=== PATIENT | female | born 1985 | race Caucasian/White ===

== ENCOUNTER 2017-04-22 21:26 | Emergency (ER) | payer OTHER ==
[~2017-04-22] VITALS: Ht 172.7 cm; Wt 108.0 kg
--- NOTE | 2017-04-22 21:41 | PD ---
HPI Chief Complaint Elevated BP and PRESSLEY Travel History International Travel<30 Days: No Contact w/Intl Traveler<30Days: No Known Affected Area: No History of Present Illness HPI Patient presents with c/o elevated BP taken at a pharmacy. Patient also reports a PRESSLEY persistent all day. Denies trying OTC medication for relief. Denies visual changes/RUQ pain. Denies problems this . History Past Medical History Medical History: Denies Significant Hx Past Surgical History Surgical History: No Previous Surgery Family History Family History: Negative Social History Alcohol Use: No Tobacco Use: No Substance Abuse: No Allergies-Medications (Allergen,Severity, Reaction): Coded Allergies: No Known Allergies (Unverified , 04/22/17) Physical Exam AFVSS BP 131/85, 126/87, 123/75 Narrative GENERAL: Well-nourished, well-developed patient. SKIN: Warm and dry. HEAD: Normocephalic and atraumatic. EYES: No scleral icterus. No injection or drainage. ENT: No nasal drainage noted. Mucous membranes pink. Airway patent. NECK: Supple, trachea midline. No JVD. CARDIOVASCULAR: Regular rate and rhythm without murmurs, gallops, or rubs. RESPIRATORY: Breath sounds equal bilaterally. No accessory muscle use. BREASTS: Bilateral exam showed no masses , no retractions, no nipple discharge. ABDOMEN/GI: Abdomen soft, non-tender, bowel sounds present, no rebound, no guarding Gravid to [-] weeks size Fundal Height: [-] GENITOURINARY: External Genitalia: intact and normal in appearance BUS glands: [-] Cervix: [-] Dilatation: [-] Effacement: [-] Station: [-] Presentation: [-] Membranes: [intact or ruptured] Uterine Contractions: [-] FHT's: Category: [1] Baseline: [120s] Reactive: [reactive] Variability: [moderate] Decels: [none] EXTREMITIES: No cyanosis or edema. BACK: Nontender without obvious deformity. No CVA tenderness. NEUROLOGICAL: Awake and alert. Motor and sensory grossly within normal limits. Five out of 5 muscle strength in all muscle groups. Normal speech. Data Data Orders Complete Blood Count With Diff (04/22/17 21:38) Comprehensive Metabolic Panel (04/22/17 21:38) Ldh Serum (04/22/17 21:38) Uric Acid (04/22/17 21:38) Labs Laboratory Tests Test 04/22/17 22:10 White Blood Count 8.7 TH/MM3 Red Blood Count 4.01 MIL/MM3 Hemoglobin 12.1 GM/DL Hematocrit 36.5 % Mean Corpuscular Volume 91.1 FL Mean Corpuscular Hemoglobin 30.2 PG Mean Corpuscular Hemoglobin 33.2 % Concent Red Cell Distribution Width 12.9 % Platelet Count 263 TH/MM3 Mean Platelet Volume 8.6 FL Neutrophils (%) (Auto) 69.0 % Lymphocytes (%) (Auto) 20.8 % Monocytes (%) (Auto) 8.8 % Eosinophils (%) (Auto) 1.0 % Basophils (%) (Auto) 0.4 % Neutrophils # (Auto) 6.0 TH/MM3 Lymphocytes # (Auto) 1.8 TH/MM3 Monocytes # (Auto) 0.8 TH/MM3 Eosinophils # (Auto) 0.1 TH/MM3 Basophils # (Auto) 0.0 TH/MM3 CBC Comment DIFF FINAL Differential Comment Sodium Level 140 MEQ/L Potassium Level 4.0 MEQ/L Chloride Level 107 MEQ/L Carbon Dioxide Level 23.5 MEQ/L Anion Gap 10 MEQ/L Blood Urea Nitrogen 8 MG/DL Creatinine 0.51 MG/DL Estimat Glomerular Filtration 143 ML/MIN Rate Random Glucose 72 MG/DL Uric Acid 4.0 MG/DL Calcium Level 8.5 MG/DL Total Bilirubin 0.3 MG/DL Aspartate Amino Transf 13 U/L (AST/SGOT) Alanine Aminotransferase 12 U/L (ALT/SGPT) Alkaline Phosphatase 75 U/L Lactate Dehydrogenase 146 U/L Total Protein 6.3 GM/DL Albumin 2.5 GM/DL MDM Interpretation(s) IUP at 39w 2d with PRESSLEY. Plan Will obtain serial BPs and pre Eclampsia labs. Will d/c home if labs are WNL and PRESSLEY resolves. Close f/u encouraged. Pre Eclampsia precautions. All questions answered. Diagnosis Diagnosis: Primary Impression: 39 weeks gestation of Additional Impression: Headache in , antepartum Disposition: DISCHARGE HOME Condition: Good Lizy Okeefe MD Apr 22, 2017 21:41
[2017-04-22] MEDS ORDERED: ACETAMINOPHEN 325 MG TAB PO ONE (22:15)
[2017-04-22 22:28] LABS: BASOPHIL % 0.4 % (0.0-2.0); EOSINOPHIL # 0.1 TH/MM3 (0-0.4); HEMATOCRIT 36.5 % (35.0-46.0); HEMO FLAGS DIFF FINAL; LYMPH % 20.8 % (9.0-44.0); LYMPHOCYTE # 1.8 TH/MM3 (1.0-4.8); MEAN CELL VOLUME 91.1 FL (80.0-100.0); MEAN CORPUSCULAR HEMOGLOBIN 30.2 PG (27.0-34.0); MEAN CORPUSCULAR HGB CONC 33.2 % (32.0-36.0); MONO % 8.8 % (0.0-8.0); PLATELET COUNT 263 TH/MM3 (150-450); RED BLOOD COUNT 4.01 MIL/MM3 (4.00-5.30); RED CELL DISTRIBUTION WIDTH 12.9 % (11.6-17.2); WHITE BLOOD COUNT 8.7 TH/MM3 (4.0-11.0)
[2017-04-22 22:48] LABS: ANION GAP 10 MEQ/L (5-15); BICARBONATE 23.5 MEQ/L (21.0-32.0); BLOOD UREA NITROGEN 8 MG/DL (7-18); CHLORIDE 107 MEQ/L (98-107); GLOMERULAR FILTRATION RATE 143 ML/MIN (>89); SODIUM (NA) 140 MEQ/L (136-145)
[2017-04-22 22:52] LABS: ALKALINE PHOSPHATASE 75 U/L (45-117); ALT (GPT) 12 U/L (10-53); AST (GOT) 13 U/L (15-37); LDH SERUM 146 U/L (84-246); TOTAL BILIRUBIN ADULT 0.3 MG/DL (0.2-1.0)
== END 2017-04-22 23:30 | disposition home or self-care (01) ==
LOC: HOBED 21:26
DX: O26.893 Other specified pregnancy related conditions, third trimester (principal); R51 Headache; Z3A.39 39 weeks gestation of pregnancy
CPT/HCPCS: 36415; 59025; 80053; 83615; 84550; 85025

== ENCOUNTER 2017-05-04 05:53 | Inpatient (IN) | payer OTHER ==
[2017-05-04] VITALS (100 sets, daily range): BP systolic 113–143; BP diastolic 32–98; PULSE 49–195; RESP 18–20; TEMP 98.2–98.4
[2017-05-04] MEDS ORDERED: DOCO200C (07:31)
[2017-05-04 07:48] LABS: AUTOMATED NEUTROPHIL # 5.9 TH/MM3 (1.8-7.7); BASOPHIL % 0.4 % (0.0-2.0); EOSINOPHIL # 0.1 TH/MM3 (0-0.4); HEMATOCRIT 36.9 % (35.0-46.0); HEMO FLAGS DIFF FINAL; LYMPH % 23.2 % (9.0-44.0); MEAN CELL VOLUME 90.4 FL (80.0-100.0); MEAN CORPUSCULAR HEMOGLOBIN 30.9 PG (27.0-34.0); MEAN CORPUSCULAR HGB CONC 34.2 % (32.0-36.0); MONO % 8.3 % (0.0-8.0); NEUT % 67.1 % (16.0-70.0); PLATELET COUNT 240 TH/MM3 (150-450); RED BLOOD COUNT 4.08 MIL/MM3 (4.00-5.30); RED CELL DISTRIBUTION WIDTH 13.2 % (11.6-17.2); WHITE BLOOD COUNT 8.8 TH/MM3 (4.0-11.0)
[2017-05-04 07:59] LABS: BACTERIA, URINE OCC /hpf; BLOOD, URINE NEG (NEG); COMMENT (UR) CULT NOT INDICATED; CULTURE IF INDICATED CULT NOT INDICATED; GLUCOSE,URINE NEG (NEG); KETONE, URINE NEG (NEG); MUCUS URINE FEW /lpf (OCC); NITRITE,URINE NEG (NEG); PH, URINE 6.5 (5.0-8.5); SQUAMOUS EPITHELIAL CELL URINE 1 /hpf (0-5); URINE COLOR YELLOW (YELLW/STRAW)
[2017-05-04] MEDS ORDERED: LACTATED RINGER'S 1000 ML BOLUS IV PRN (08:30)
[2017-05-04] MEDS ORDERED: OXYTOCIN 30 UNITS/NS 500ML PREMIX IV SCH (08:30)
[2017-05-04] MEDS ORDERED: LIDOCAINE HCL 1% 50 ML VIAL I-DERMAL PRN (08:30)
[2017-05-04] MEDS ORDERED: PENICILLIN G POT 5,000,000 UNITS/NS 100 ML (Mini-Bag Plus) IV ONE ×2 (08:30)
[2017-05-04] MEDS ORDERED: CITRIC ACID-SODIUM CITRATE LIQ 30 ML UDC PO SCH (08:30)
[2017-05-04] MEDS ORDERED: ONDANSETRON HCL 4 MG/2 ML VIAL IV PRN (08:30)
[2017-05-04] MEDS ORDERED: NS 1000 ML IV PRN (08:30)
[2017-05-04] MEDS ORDERED: OXYTOCIN 30 UNITS 500ML PREMIX IV ONE (08:30)
[2017-05-04] MEDS ORDERED: LIDOCAINE HCL 1% 50 ML VIAL INFIL PRN (08:30)
[2017-05-04] MEDS: LACTATED RINGER'S 1000 ML IV SCH ×2 (08:30→16:30)
[2017-05-04] MEDS ORDERED: MINERAL OIL 10 ML VIAL TOPICAL PRN (08:30)
[2017-05-04] MEDS ORDERED: NS 500 ML BOLUS IV PRN (08:30)
[2017-05-04] MEDS ORDERED: OXYTOCIN 30 UNITS-500ML PREMIX 500 ML IV SCH (08:45)
[2017-05-04] MEDS: PENICILLIN G POT 2,500,000 UNITS/NS 100 ML IV SCH ×6 (13:00→21:00)
[2017-05-04] MEDS ORDERED: ZOLPIDEM TARTRATE 5 MG TAB PO PRN (16:45)
[2017-05-04] MEDS ORDERED: MISOPROSTOL 25 MCG SUPP VAGINAL ONE (20:00)
[2017-05-05] VITALS (135 sets, daily range): BP systolic 106–162; BP diastolic 51–113; PULSE 41–164; RESP 14–20; TEMP 98.1–98.9; O2SAT 99–100
[2017-05-05] MEDS ORDERED: MISOPROSTOL 25 MCG SUPP - repeat dose VAGINAL PRN
[2017-05-05] MEDS: LACTATED RINGER'S 1000 ML IV SCH ×2 (00:30→08:30)
[2017-05-05] MEDS ORDERED: OXYTOCIN 30 UNITS/NS 500ML PREMIX IV SCH (03:30)
[2017-05-05] MEDS: PENICILLIN G POT 2,500,000 UNITS/NS 100 ML IV SCH ×6 (04:24→09:00)
[2017-05-05] MEDS ORDERED: fentaNYL 2MCG-BUPIV 0.125% INJ 100 ML ONE ×2 (10:29→15:26)
[2017-05-05] MEDS ORDERED: ePHEDrine/NS 25 MG/5 ML SYR ONE (10:29)
--- NOTE | 2017-05-05 11:49 | HHI.PR ---
Subjective Remarks Doing well, slept well last nite. Good fm and occasional UCs. Not painful yet. Not an athlete Objective Vital Signs Date Time Temp Pulse Resp B/P (MAP) Pulse Ox O2 Delivery O2 Flow Rate FiO2 05/05/17 11:29 20 05/05/17 11:25 148 05/05/17 11:25 62 05/05/17 11:21 55 138/83 (101) 05/05/17 11:20 53 05/05/17 11:20 52 05/05/17 11:16 49 132/66 (88) 05/05/17 11:15 137 05/05/17 11:15 50 05/05/17 10:56 50 119/68 (85) 05/05/17 10:55 50 05/05/17 10:55 51 20 05/05/17 10:51 128/76 (93) 05/05/17 10:51 51 05/05/17 10:50 80 05/05/17 10:50 53 05/05/17 10:46 48 129/86 (100) 05/05/17 10:45 49 05/05/17 10:45 46 05/05/17 10:40 47 05/05/17 10:40 54 137/74 (95) 05/05/17 10:40 45 05/05/17 10:35 70 05/05/17 10:31 52 138/78 (98) 05/05/17 10:30 47 05/05/17 10:10 66 05/05/17 10:05 73 05/05/17 10:01 49 149/97 (114) 05/05/17 10:00 50 05/05/17 09:55 53 05/05/17 09:50 61 05/05/17 09:48 52 139/89 (106) 05/05/17 09:45 71 05/05/17 09:40 51 05/05/17 09:35 49 05/05/17 09:31 48 05/05/17 09:30 51 05/05/17 09:05 20 05/05/17 09:05 51 05/05/17 09:00 56 05/05/17 09:00 51 155/93 (113) 05/05/17 08:31 62 134/77 (96) 05/05/17 08:30 63 05/05/17 08:15 20 05/05/17 08:15 98.7 05/05/17 08:10 69 05/05/17 08:07 63 135/75 (95) 05/05/17 08:05 61 05/05/17 08:00 64 05/05/17 06:24 18 05/05/17 06:23 50 05/05/17 06:23 122/79 (93) 05/05/17 06:10 60 05/05/17 05:56 16 05/05/17 05:55 45 05/05/17 05:40 55 05/05/17 05:30 98.4 05/05/17 05:25 48 05/05/17 05:18 47 111/60 (77) 05/05/17 05:15 16 05/05/17 05:10 45 05/05/17 04:55 44 05/05/17 04:40 47 05/05/17 04:39 18 05/05/17 04:31 41 126/77 (93) 05/05/17 04:30 18 05/05/17 04:25 45 05/05/17 03:00 16 05/05/17 02:30 16 05/05/17 02:00 16 05/05/17 02:00 16 05/05/17 00:45 98.4 05/05/17 00:45 98.4 05/05/17 00:43 18 05/05/17 00:40 43 05/05/17 00:40 43 05/05/17 00:35 45 05/05/17 00:35 44 05/05/17 00:33 45 125/82 (96) 05/05/17 00:30 70 05/05/17 00:30 71 05/05/17 00:00 18 05/04/17 23:00 18 05/04/17 21:55 54 05/04/17 21:51 139/81 (100) 05/04/17 21:51 98.2 54 18 05/04/17 21:50 58 05/04/17 21:45 60 05/04/17 19:53 66 137/85 (102) 05/04/17 19:52 98.4 18 05/04/17 19:50 70 05/04/17 19:45 73 05/04/17 16:31 50 139/83 (101) 05/04/17 16:30 51 05/04/17 16:15 20 05/04/17 16:10 50 05/04/17 16:05 56 05/04/17 16:01 52 139/89 (106) 05/04/17 16:00 50 05/04/17 15:00 20 05/04/17 14:55 49 05/04/17 14:50 54 05/04/17 14:46 56 119/74 (89) 05/04/17 14:45 50 05/04/17 14:40 52 05/04/17 14:35 51 05/04/17 14:31 58 05/04/17 14:31 137/89 (105) 05/04/17 14:30 50 05/04/17 14:25 55 05/04/17 14:20 55 05/04/17 14:16 54 143/83 (103) 05/04/17 14:15 59 05/04/17 14:10 57 05/04/17 14:05 56 05/04/17 14:01 54 133/88 (103) 05/04/17 14:00 56 05/04/17 13:55 53 05/04/17 13:50 53 05/04/17 13:46 53 134/88 (103) 05/04/17 13:45 53 05/04/17 13:35 63 05/04/17 13:31 57 137/81 (99) 05/04/17 13:30 61 05/04/17 13:25 56 05/04/17 13:20 59 05/04/17 13:16 63 140/93 (109) 05/04/17 13:15 63 05/04/17 13:15 20 05/04/17 13:10 65 05/04/17 13:05 64 05/04/17 13:01 69 131/89 (103) 05/04/17 13:00 68 05/04/17 12:55 69 05/04/17 12:50 69 05/04/17 12:46 61 136/89 (105) 05/04/17 12:45 79 05/04/17 12:40 64 05/04/17 12:35 66 05/04/17 12:30 62 05/04/17 12:30 69 131/98 (109) 05/04/17 12:25 80 05/04/17 12:16 68 130/90 (103) 05/04/17 12:15 72 05/04/17 12:10 69 05/04/17 12:05 69 05/04/17 12:01 62 127/83 (98) 05/04/17 12:00 67 05/04/17 11:55 62 05/04/17 11:50 65 05/04/17 11:47 195 124/32 (62) Result Diagram: 05/04/17 0645 Other Results Chest is clear CV bradycardic without any significant murmer,. Normal s1, s2, Abd gravid and non tender. Pelvic,,cx is 3/80/vts/midlplane and soft. AROM clear fluid. \ Ext no calf tenderness. Assessment and Plan Assessment and Plan IUP at 41+ weeks. Day #2 induction AROM today and will continue pitocin. May need an IUPC later. Bradycardia EKG was wnl, Will follow no need for workup now Denies any chest pain or SOB Discussed Condition With pt and Shila Israel MD May 05, 2017 11:49
--- NOTE | 2017-05-05 13:36 | EKG ---
Date Performed: 05/05/2017 Time Performed: 06:10:56 PTAGE: 31 years EKG: Sinus bradycardia Normal ECG except for rate NO PREVIOUS TRACING DOCTOR: Krista Vasquez Interpretating Date/Time 05/05/2017 13:32:37
[2017-05-05] MEDS ORDERED: MEASLES, MUMPS, RUBELLA VACCINE 0.5 ML VIAL SQ ONE (16:00)
[2017-05-05] MEDS ORDERED: DIPHTH/TETANUS/ACEL PERTUSSIS (BOOSTER) 0.5 ML VIAL/PFS IM ONE (16:00)
--- NOTE | 2017-05-05 19:36 | PD.OB.DELI ---
Weeks gestation: 41 Gest age assessed date: May 05, 2017 Gest age assessed time: 19:34 Pt started active labor?: Yes Medical induction of labor?: Yes Artificial rupture of membrane: Yes Anesthesia: Epidural Episiotomy: None Vaginal Delivery: Normal Presentation: Occiput posterior Nuchal Cord: x1 Delayed cord clamping (45 sec): Yes : Female Delivery date: May 05, 2017 Delivery time: 14:25 Five Minute : 8 Ten Minute : 9 Weight: Delayed for skin to skin Placenta: Spontaneous delivery, Intact, 3 vessel cord Laceration: Vaginal laceration (and bilateral labial lacerations), 2 deg Repair: Vicryl interrupted, Vicryl running Estimated blood loss: 250cc Additional Information Baby Beckie! Ghazal Mercer MD, R3 May 05, 2017 19:36
[2017-05-05] MEDS ORDERED: ONDANSETRON ODT 4 MG TAB PO PRN (19:45)
[2017-05-05] MEDS ORDERED: oxyCODONE/ACETAMINOPHEN 5 MG/325 MG TAB PO PRN ×2 (19:45)
[2017-05-05] MEDS ORDERED: ACETAMINOPHEN 325 MG TAB PO PRN (19:45)
[2017-05-05] MEDS ORDERED: ZOLPIDEM TARTRATE 5 MG TAB PO PRN (19:45)
[2017-05-05] MEDS ORDERED: ALUMINUM/MAGNESIUM/SIMETH 30 ML CUP PO PRN (19:45)
[2017-05-05] MEDS ORDERED: OXYTOCIN 30 UNITS-500ML PREMIX 500 ML IV SCH (19:45)
[2017-05-05] MEDS ORDERED: SODIUM CHLORIDE 0.9% FLUSH 10 ML FLUSH IV FLUSH PRN (19:45)
[2017-05-05] MEDS ORDERED: MORPHINE SULFATE PF 5 MG/10 ML VIAL ONE (19:55)
[2017-05-05] MEDS ORDERED: ACETAMINOPHEN 1000 MG/100 ML 100 ML IV ONE (19:55)
[2017-05-05] MEDS ORDERED: EPIDURAL-DIPHENHYDRAMINE HCL 50 MG CAP PO PRN (20:00)
[2017-05-05] MEDS ORDERED: EPIDURAL-DIPHENHYDRAMINE HCL 50 MG/ML VIAL IV PUSH PRN (20:00)
[2017-05-05] MEDS ORDERED: EPIDURAL-DO NOT ADMINISTER ANTICOAGULANTS PRN (20:00)
[2017-05-05] MEDS ORDERED: EPIDURAL-NALOXONE HCL 0.4 MG/ML AMP IV PRN (20:00)
[2017-05-05] MEDS ORDERED: EPIDURAL-NO SYSTEMIC NARCOTICS PRN (20:00)
[2017-05-05] MEDS ORDERED: SODIUM CHLORIDE 0.9% FLUSH 10 ML FLUSH IV FLUSH SCH (21:00)
[2017-05-05] MEDS: WITCH HAZEL 50%/GLYCERIN 12.5% 40 PAD JAR TOPICAL PRN (22:40)
[2017-05-05] MEDS: DOCUSATE SODIUM 50 MG/SENNA 8.6 MG TAB PO PRN (22:41)
[2017-05-05] MEDS: BENZOCAINE 20% TOPICAL SPRAY 60 ML CAN TOPICAL PRN (22:41)
[2017-05-06] MEDS: DOCUSATE SODIUM 50 MG/SENNA 8.6 MG TAB PO PRN ×2 (00:02→21:16)
[2017-05-06] MEDS: IBUPROFEN 600 MG TAB PO PRN ×4 (00:05→21:16)
[2017-05-06] MEDS: WITCH HAZEL 50%/GLYCERIN 12.5% 40 PAD JAR TOPICAL PRN (00:28)
[2017-05-06] MEDS: BENZOCAINE 20% TOPICAL SPRAY 60 ML CAN TOPICAL PRN (00:28)
[2017-05-06 08:50] VITALS: BP 124/83; PULSE 67; RESP 20; TEMP 98
--- NOTE | 2017-05-06 09:36 | MP ---
cc: YUMI BLANK DATE OF SURGERY: 05/05/2017 PREOPERATIVE DIAGNOSIS 1. Large vaginal laceration from the introitus up to the apex of the vagina, unable to repair in the labor room. 2. Multiple other lacerations. POSTOPERATIVE DIAGNOSIS 1. Large vaginal laceration from the introitus up to the apex of the vagina, unable to repair in the labor room. 2. Multiple other lacerations. PROCEDURE Repair of vaginal lacerations and labial lacerations. ANESTHESIA Epidural. SURGEON Shila Blank MD FINDINGS There was a second-degree tear from the introitus to the apex of the vagina posteriorly very close to the bowel. The rectal sphincter was intact and there were no tears in the rectal mucosa. Her left labia minora was detached and we reattached that. There were some small first-degree tears on both labia which was repaired with 5-0 Vicryl. COMPLICATIONS None. COUNTS Correct. ESTIMATED BLOOD LOSS Minimal. CONDITION The patient tolerated the procedure well and went to the recovery room in good condition. DETAILS OF PROCEDURE The patient gave and was noted to have a very deep laceration to the vagina up to the vaginal apex, second-degree. The colon was not involved. We began this by going as high as we could and put a single stitch of 0 Vicryl in the vagina. We then pulled that down and lifted up to see the very apex and with a 3-0 Vicryl we repaired that in a running fashion almost to the perineum. Once this was repaired we built up the perineum with 3-0 Vicryl and repaired the outside with 3-0 Vicryl on a small needle. Once this was done we repaired the left labia minora and reattached it with 5-0 Vicryl. There were some small first-degree but fairly wide lacerations bilaterally and this was repaired with 5-0 Vicryl as well with excellent results. At this point we irrigated the area and checked for hemostasis which was excellent. She tolerated the procedure well and went to the recovery room in good condition. RMD MILKA Campbell/NADEEM /8:59 AM /9:20 AM
--- NOTE | 2017-05-06 11:26 | HHI.OB ---
Subjective Post Day: 1 Objective Vitals/I&O Vital Signs Date Time Temp Pulse Resp B/P (MAP) Pulse Ox O2 Delivery O2 Flow Rate FiO2 05/06/17 08:50 98.0 67 20 124/83 (97) 05/05/17 22:00 98.8 05/05/17 22:00 58 20 121/76 (91) 99 05/05/17 21:30 110/62 (78) 05/05/17 21:30 50 14 05/05/17 21:15 54 109/61 (77) 05/05/17 21:15 15 05/05/17 21:00 106/55 (72) 05/05/17 21:00 52 20 05/05/17 20:45 50 16 107/60 (76) 05/05/17 20:30 98.1 18 05/05/17 20:30 50 05/05/17 20:30 115/51 (72) 05/05/17 19:00 48 118/71 (87) 05/05/17 18:16 164 158/91 (113) 05/05/17 18:01 70 140/88 (105) 05/05/17 17:45 149/113 (125) 05/05/17 17:30 51 129/68 (88) 05/05/17 17:16 50 120/64 (82) 05/05/17 17:01 48 126/70 (88) 05/05/17 16:46 47 132/69 (90) 05/05/17 16:31 47 129/74 (92) 05/05/17 16:25 53 05/05/17 16:20 97 05/05/17 16:16 51 128/71 (90) 05/05/17 16:15 20 05/05/17 16:15 52 05/05/17 16:10 53 05/05/17 16:05 51 05/05/17 16:01 55 129/85 (100) 05/05/17 16:00 98.8 20 05/05/17 16:00 56 05/05/17 15:55 67 05/05/17 15:50 64 05/05/17 15:46 96 153/98 (116) 05/05/17 15:45 46 05/05/17 15:31 58 142/95 (111) 05/05/17 15:16 62 162/73 (102) 05/05/17 15:01 70 130/84 (99) 05/05/17 14:45 54 131/72 (91) 05/05/17 14:32 43 126/65 (85) 05/05/17 14:16 44 130/55 (80) 05/05/17 14:01 45 115/59 (77) 05/05/17 14:00 98.9 20 05/05/17 13:46 44 134/76 (95) 05/05/17 13:30 20 05/05/17 13:30 46 127/87 (100) 05/05/17 13:20 50 05/05/17 13:16 45 117/62 (80) 05/05/17 13:15 48 05/05/17 13:10 53 99 05/05/17 13:05 45 100 05/05/17 13:01 45 128/65 (86) 05/05/17 13:00 49 100 05/05/17 12:46 45 129/72 (91) 05/05/17 12:45 47 05/05/17 12:39 98.1 20 05/05/17 12:35 47 05/05/17 12:31 47 131/76 (94) 05/05/17 12:30 48 05/05/17 12:23 19 05/05/17 12:20 47 05/05/17 12:16 47 135/70 (91) 05/05/17 12:15 17 05/05/17 12:15 47 05/05/17 12:10 48 05/05/17 12:05 51 05/05/17 12:01 49 138/74 (95) 05/05/17 12:00 52 05/05/17 11:55 46 05/05/17 11:50 52 05/05/17 11:46 47 125/77 (93) 05/05/17 11:45 48 05/05/17 11:40 48 05/05/17 11:35 47 05/05/17 11:31 45 139/77 (97) 05/05/17 11:30 45 05/05/17 11:29 20 05/05/17 11:25 148 05/05/17 11:25 62 Objective Remarks GENERAL: Well-nourished, well-developed patient. CARDIOVASCULAR: Regular rate and rhythm without murmurs, gallops, or rubs. RESPIRATORY: Breath sounds equal bilaterally. No accessory muscle use. ABDOMEN/GI: Abdomen soft, non-tender. Fundus: Firm, non-tender at umbilicus. GENITOURINARY: Light to moderate bleeding. EXTREMITIES: No cyanosis or edema, non-tender, without signs of DVT. Medications and IVs Current Medications Medications (Trade) Dose Ordered Sig/Winifred Route Start Time Stop Time Status Last Admin (NS Flush) 2 ml BID IV FLUSH 05/05/17 21:00 (NS Flush) 2 ml UNSCH PRN IV FLUSH 05/05/17 19:45 (Tylenol) 650 mg Q4H PRN PO 05/05/17 19:45 (Motrin) 600 mg Q6H PRN PO 05/05/17 19:45 05/06/17 09:00 (Percocet 5-325 Mg) 1 tab Q4H PRN PO 05/05/17 19:45 (Percocet 5-325 Mg) 2 tab Q4H PRN PO 05/05/17 19:45 (Americaine 20% Top Spr) 1 spray Q4H PRN TOPICAL 05/05/17 19:45 05/06/17 00:28 (Tucks Pads) 1 applic QID PRN TOPICAL 05/05/17 19:45 05/06/17 00:28 (Melyssa-Colace) 2 tab Q12H PRN PO 05/05/17 19:45 05/06/17 00:02 (Ambien) 5 mg HS PRN PO 05/05/17 19:45 (Mag-Al Plus Susp Liq) 15 ml Q8H PRN PO 05/05/17 19:45 (Zofran Odt) 4 mg Q6H PRN PO 05/05/17 19:45 Miscellaneous Information NO SYSTEMIC NARCOTICS TO BE GIVEN FO... UNSCH PRN .XX 05/05/17 20:00 05/06/17 19:59 (Narcan Inj) 0.4 mg UNSCH PRN IV 05/05/17 20:00 05/06/17 19:59 (Benadryl Inj) 25 mg Q6H PRN IV PUSH 05/05/17 20:00 05/06/17 19:59 (Benadryl) 50 mg Q6H PRN PO 05/05/17 20:00 05/06/17 19:59 Miscellaneous Information ALL NURSING DEPARTMENTS UNSCH PRN .XX 05/05/17 20:00 05/06/17 19:59 Assessment/Plan Problem List: (1) Vaginal laceration ICD Codes: S31.41XA - Laceration without foreign body of vagina and vulva, initial encounter Plan: repaired with labial laceration (2) Normal vaginal delivery ICD Codes: O80 - Encounter for full-term uncomplicated delivery Plan: routine Assessment and Plan pt doing well pain well managed with oral pain medication pt ambulating well bonding with routine Discharge Planning consider dc home tomorrow Shanique Tyler May 06, 2017 11:26
--- NOTE | 2017-05-06 11:28 | HHI.DCPOC ---
Discharge Care Plan Diagnosis: (1) Normal vaginal delivery (2) Vaginal laceration Your Health Problems Are: Vaginal delivery Report Symptoms to Your Doctor -Temperature above 100.5 degrees -Redness, of incision or excessive or foul smelling drainage -Unusual pain or calf pain -Increased vaginal bleeding -Painful or difficulty urinating -Feelings of extreme sadness or anxiety after 2 weeks Goals to Promote Your Health * To prevent worsening of your condition and complications * To maintain your health at the optimal level Directions to Meet Your Goals Take your medications as prescribed Follow your dietary instruction Follow activity as directed Ensure plenty of rest for recovery Drink fluids for hydration Keep your appointments as scheduled Take your immunizations and boosters as scheduled If your symptoms worsen call your PCP, if no PCP go to Urgent Care Center or Emergency Room Smoking is Dangerous to Your Health. Avoid second hand smoke Call the 24-hour crisis hotline for domestic abuse at Shanique Tyler May 06, 2017 11:28
[2017-05-06 20:37] VITALS: BP 119/88; PULSE 61; RESP 18; TEMP 98.1
[2017-05-07] MEDS: IBUPROFEN 600 MG TAB PO PRN ×2 (03:47→12:11)
[2017-05-07 08:00] VITALS: BP 133/85; PULSE 65; RESP 16; TEMP 98
[2017-05-07] MEDS ORDERED: IBUP-232 PO (08:17)
[2017-05-07] MEDS ORDERED: SENN1TAB PO (08:17)
[2017-05-07] MEDS ORDERED: OXYC1TAB63 PO (08:17)
--- NOTE | 2017-05-07 08:52 | HHI.DS ---
Admission Date May 04, 2017 at 05:53 Discharge Date: May 07, 2017 Admitting Diagnosis 41 WEEKS INDUCTION OF LABOR Diagnosis: (1) Vaginal laceration Diagnosis: Secondary ICD Codes: S31.41XA - Laceration without foreign body of vagina and vulva, initial encounter (2) Normal vaginal delivery Diagnosis: Principal ICD Codes: O80 - Encounter for full-term uncomplicated delivery Delivery Date: May 05, 2017 Vaginal Delivery: Normal : Female Brief History 41 WEEK , ADMITTED FOR INDUCTION 2 DAY INDUCTION - Hospital Course 41 WEEK 2 DAY INDUCTION REPAIR OF VAGINAL LACERATION AND LABIAL LACERATION IN OR ROUTINE Pt Condition on Discharge: Good Discharge Disposition: Discharge Home Discharge Instructions Diet Instructions: As Tolerated, No Restrictions Additional Diet Instructions: Drink at least 8 - 16 oz bottles of water a day Activities You Can Perform: Shower Only-No Bath, Sitz Bath Activities to Avoid: Lifting/Bending, Sexual Activity Additional Activity Instruc.: No driving until off pain medications Do not lift anything heavier than your baby in an infant carrier Follow up Referrals: TRAVELING AUDITOR - 2 Weeks @ [facility] [place] New Medications: Ibuprofen (Ibuprofen) 600 Mg Tab 600 MG PO Q6H PRN for CRAMPING, #30 TAB Oxycodone-Acetaminophen (Oxycodone-Acetaminophen) 5-325 mg Tab 1 TAB PO Q4H PRN for PAIN SCALE 3 TO 5, #20 TAB Sennosides-Docusate Sodium (Senna Plus 8.6-50 mg) 1 Tab Tab 2 TAB PO Q12H PRN for CONSTIPATION, #30 TAB Shanique Tyler May 07, 2017 08:52
--- NOTE | 2017-05-07 09:02 | HHI.OB ---
Subjective Post Day: 2 Objective Vitals/I&O Vital Signs Date Time Temp Pulse Resp B/P (MAP) Pulse Ox O2 Delivery O2 Flow Rate FiO2 05/06/17 20:37 98.1 61 18 05/06/17 20:37 119/88 (98) Objective Remarks GENERAL: Well-nourished, well-developed patient. CARDIOVASCULAR: Regular rate and rhythm without murmurs, gallops, or rubs. RESPIRATORY: Breath sounds equal bilaterally. No accessory muscle use. ABDOMEN/GI: Abdomen soft, non-tender. Fundus: Firm, non-tender at umbilicus. GENITOURINARY: Light to moderate bleeding, swelling to labia EXTREMITIES: No cyanosis or edema, non-tender, without signs of DVT. Medications and IVs Current Medications Medications (Trade) Dose Ordered Sig/Winifred Route Start Time Stop Time Status Last Admin (NS Flush) 2 ml BID IV FLUSH 05/05/17 21:00 (NS Flush) 2 ml UNSCH PRN IV FLUSH 05/05/17 19:45 (Tylenol) 650 mg Q4H PRN PO 05/05/17 19:45 (Motrin) 600 mg Q6H PRN PO 05/05/17 19:45 05/07/17 03:47 (Percocet 5-325 Mg) 1 tab Q4H PRN PO 05/05/17 19:45 (Percocet 5-325 Mg) 2 tab Q4H PRN PO 05/05/17 19:45 (Americaine 20% Top Spr) 1 spray Q4H PRN TOPICAL 05/05/17 19:45 05/06/17 00:28 (Tucks Pads) 1 applic QID PRN TOPICAL 05/05/17 19:45 05/06/17 00:28 (Melyssa-Colace) 2 tab Q12H PRN PO 05/05/17 19:45 05/06/17 21:16 (Ambien) 5 mg HS PRN PO 05/05/17 19:45 (Mag-Al Plus Susp Liq) 15 ml Q8H PRN PO 05/05/17 19:45 (Zofran Odt) 4 mg Q6H PRN PO 05/05/17 19:45 Assessment/Plan Problem List: (1) Vaginal laceration ICD Codes: S31.41XA - Laceration without foreign body of vagina and vulva, initial encounter Plan: repaired with labial laceration (2) Normal vaginal delivery ICD Codes: O80 - Encounter for full-term uncomplicated delivery Plan: routine Assessment and Plan pt doing well pain well managed with oral pain medication pt taking stool softeners, has had bm bonding with routine Discharge Planning dc home today Shanique Tyler May 07, 2017 09:02
[2017-05-07] MEDS: WITCH HAZEL 50%/GLYCERIN 12.5% 40 PAD JAR TOPICAL PRN (12:11)
[2017-05-07] MEDS: BENZOCAINE 20% TOPICAL SPRAY 60 ML CAN TOPICAL PRN (12:11)
== END 2017-05-07 17:24 | disposition home or self-care (01) | DRG 775 ==
LOC: H2EA 05:53 → H1EA 05-05 21:27
PROVIDERS: ADMIT Obstetrics & Gynecology; ATTEND Obstetrics & Gynecology
PROC: 3E033VJ Introduction of Other Hormone into Peripheral Vein, Percutaneous Approach (ICD-10-PCS; 2017-05-04)
PROC: 10E0XZZ Delivery of Products of Conception, External Approach (ICD-10-PCS; principal; 2017-05-05)
PROC: 0KQM0ZZ Repair Perineum Muscle, Open Approach (ICD-10-PCS; 2017-05-05)
PROC: 0UQMXZZ Repair Vulva, External Approach (ICD-10-PCS; 2017-05-05)
PROC: 10907ZC Drainage of Amniotic Fluid, Therapeutic from Products of Conception, Via Natural or Artificial Opening (ICD-10-PCS; 2017-05-05)
PROC: 00HU33Z Insertion of Infusion Device into Spinal Canal, Percutaneous Approach (ICD-10-PCS; 2017-05-05)
PROC: 3E0R3CZ (ICD-10-PCS; 2017-05-05)
DX: O48.0 Post-term pregnancy (principal); R00.1 Bradycardia, unspecified; O26.892 Other specified pregnancy related conditions, second trimester; O99.824 Streptococcus B carrier state complicating childbirth; O69.81X0 Labor and delivery complicated by cord around neck, without compression, not applicable or unspecified; O70.1 Second degree perineal laceration during delivery; O70.0 First degree perineal laceration during delivery; Z3A.41 41 weeks gestation of pregnancy; Z37.0 Single live birth
CPT/HCPCS: 59025; 81001; 85025; 86900; 86901; 93005; J0131; J2274; J2540; J2590; J3010; J7120